=== PATIENT | male | born 1990 | race Caucasian/White ===

== ENCOUNTER 2018-10-17 15:52 | Emergency (ER) | payer BC ==
[2018-10-17] MEDS ORDERED: Diphtheria,Pertussis(Acell),Tetanus Vaccine 0.5 ML SDV IM ONE (16:41)
[2018-10-17] MEDS ORDERED: Lidocaine 1% 20 ML MDV INJECT ONE (16:42)
[2018-10-17] MEDS ORDERED: Bacitracin Oint 1 GM U/D Packet TOP ONE (16:42)
--- NOTE | 2018-10-17 16:45 | EDM.PDOC ---
ED HPI GENERAL MEDICAL PROBLEM - General Chief Complaint: Laceration Stated Complaint: CUT LT RING FINGER Time Seen by Provider: 10/17/18 16:43 Source of Information: Reports: Patient, RN Notes Reviewed - History of Present Illness INITIAL COMMENTS - FREE TEXT/NARRATIVE: pt cut ghis left ring finger on the marsh aspect while doing some remodeling. Onset: Today Duration: Hour(s): Associated Symptoms: Reports: No Other Symptoms Left 4-Ring finger Pain Score (Numeric/FACES): 3 - Related Data Allergies Allergy/AdvReac Type Severity Reaction Status Date / Time No Known Allergies Allergy Verified 10/17/18 16:27 Home Meds: Home Meds NK [No Known Home Meds] 10/17/18 [History] Past Medical History - Past Health History Medical/Surgical History: Denies Medical/Surgical History Social & Family History - Caffeine Use Caffeine Use: Reports: Coffee - Recreational Drug Use Recreational Drug Use: No ED ROS GENERAL - Review of Systems Review Of Systems: See Below Constitutional: Reports: No Symptoms HEENT: Reports: No Symptoms Respiratory: Reports: No Symptoms Cardiovascular: Reports: No Symptoms Endocrine: Reports: No Symptoms GI/Abdominal: Reports: No Symptoms : Reports: No Symptoms Musculoskeletal: Reports: No Symptoms, Other (pt has a laceration on the marsh aspect of the left middle finger, He has normal sensation and movement. ) ED EXAM, SKIN/RASH Exam: See Below Text/Narrative:: pt has a 1 inch lac at the base of the left middle finger on the marsh aspect. Exam Limited By: No Limitations General Appearance: Alert, Anxious Extremities: Other ( Pt has a 1 inch ragged type laceration at the base of the left middle finger. This is deep to the subq. He has normal motion and he has normal sensation. He cut this on a ladder. ) Course - Vital Signs Last Recorded V/S: Last Vital Signs Temp 36.5 C 10/17/18 16:25 Pulse 100 10/17/18 16:25 Resp 16 10/17/18 16:25 BP 147/88 H 10/17/18 16:25 Pulse Ox 98 10/17/18 16:25 - Orders/Labs/Meds Orders: Active Orders 24 hr Category Date Time Status Vaccines to be Administered [RC] PER UNIT ROUTINE Care 10/17/18 16:41 Active Meds: Medications Discontinued Medications Generic Name Dose Route Start Last Admin Trade Name Thang PRN Reason Stop Dose Admin Bacitracin 1 dose 10/17/18 16:42 10/17/18 17:09 Bacitracin Oint 1 Gm TOP 10/17/18 16:43 1 dose ONETIME ONE Administration Diphtheria/Tetanus/Acell Pertussis 0.5 ml 10/17/18 16:41 10/17/18 17:10 Adacel IM 10/17/18 16:42 0.5 ml .ONCE ONE Administration Lidocaine HCl 20 ml 10/17/18 16:42 10/17/18 17:09 Xylocaine 1% INJECT 10/17/18 16:43 20 ml ONETIME ONE Administration - Re-Assessments/Exams Free Text/Narrative Re-Assessment/Exam: 10/17/18 17:26 The hand was soaked and scrubbed well . He was infiltrated with lidocaine. The wound was closed in a layered fashion with 5-0 chromic and 5-0 prolene. . It was dressed with bacatracin. Departure - Departure Time of Disposition: 17:28 Disposition: Home, Self-Care 01 Condition: Fair Clinical Impression: Laceration - Discharge Information Instructions: Laceration Care, Adult Referrals: PCP,None [Primary Care Provider] - Forms: ED Department Discharge Care Plan Goals: no further ointments, dress daily with a dry dressing. keep dry, suture removal in 7-8 days. - My Orders Last 24 Hours: My Active Orders 10/17/18 16:41 Vaccines to be Administered [RC] PER UNIT ROUTINE - Assessment/Plan Last 24 Hours: My Active Orders 10/17/18 16:41 Vaccines to be Administered [RC] PER UNIT ROUTINE
== END 2018-10-17 18:17 | disposition home or self-care (01) ==
LOC: JP.ED 15:52
DX: S61.213A Laceration without foreign body of left middle finger without damage to nail, initial encounter (principal); Z23 Encounter for immunization; W45.8XXA Other foreign body or object entering through skin, initial encounter
CPT/HCPCS: 12041; 90471; 90715; 99283-25